=== PATIENT | female | born 1975 | race Two or more races ===

== ENCOUNTER 2020-04-16 08:02 | Outpatient (REF) | payer OTHER, SELFPAY | END 2020-04-16 08:03 | disposition home or self-care (01) | LOC: HO.LAB 08:02 | PROVIDERS: Visit Provider Internal Medicine | DX: Z20.828 Contact with and (suspected) exposure to other viral communicable diseases (principal) | CPT/HCPCS: C9803; U0003 ==

== ENCOUNTER 2020-04-20 06:12 | Outpatient (REF) | payer OTHER, SELFPAY | END 2020-04-20 06:13 | disposition home or self-care (01) | LOC: HO.LAB 06:12 | PROVIDERS: Visit Provider Internal Medicine | DX: Z20.828 Contact with and (suspected) exposure to other viral communicable diseases (principal) | CPT/HCPCS: C9803; U0003 ==